=== PATIENT | female | born 2000 | race Hispanic/Latino ===

== ENCOUNTER 2019-03-25 08:11 | Inpatient (IN) | payer BC, OTHER ==
--- NOTE | 2019-03-25 08:52 | History and Physical Report ---
History of Present Illness Date of examination: 03/25/19 Date of admission: 03/25/19 08:11 History of present illness: EDC Confirmation: 03/14/2019 Gestational Age: 15 4/7 weeks Past History : 1 Term Births: 0 Premature Births: 0 Living Children: 0 Para: 0 Mult. Births: 0 Prev : 0 Prev. attempt? none Aborta: 0 Elect. Ab: 0 Spont. 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 of genital herpes: no Partner hx. of genital herpes: no Rash, Viral, or Febrile illness since last LMP? yes Varicella/Chicken Pox Status: Immunized TB Risk: no Genetic History Congenital Heart Defect: Mom: no Dad: no Kylee Disease: Mom: no Dad: no Thalassemia Mom: no Dad: no Neural Tube Defect Mom: no Dad: no Down's Syndrome Mom: no Dad: no Cole-Sachs Mom: no Dad: no Sickle Cell Disease/Trait Mom: no Dad: no Hemophilia Mom: no Dad: no Muscular Dystrophy Mom: no Dad: no Cystic Fibrosis Mom: no Dad: no [place] Chorea Mom: no Dad: no Mental Retardation Mom: no Dad: no Fragile X Mom: no Dad: no Other Genetic/Chromosomal Disorder Mom: no Dad: no Child w/other defect Mom: no Dad: no Enviromental Exposures Xray Exposure: no Medication, drug, or alcohol use since LMP: no Chemical/Other Exposure: no Exposure to Cat Liter: no Hx of Parvovirus (Fifth Disease): no Occupational Exposure to Children: none Active Medications (reviewed today): None Current Allergies (reviewed today): No known allergies Past History - Obstetrical History Expected Date of Delivery: 03/14/19 Actual Gestation: 41 Week(s) 4 Day(s) : 1 Para: 0 Hx # Term Pregnancies: 0 Number of Pregnancies: 0 Spontaneous Abortions: 0 Induced : 0 Number of Living Children: 0 Medications and Allergies Allergies Allergy/AdvReac Type Severity Reaction Status Date / Time No Known Allergies Allergy Verified 01/28/19 17:29 Results Result Diagrams: 03/25/19 09:30 All other labs normal. GBS negative HBsAg Screen Negative Negative *1 RPR Non Reactive Non Reactive *2 Rubella Antibodies, IgG 1.31 index Immune >0.99 *3 Non-immune <0.90 Equivocal 0.90 - 0.99 Immune >0.99 ABO Grouping O *4 Rh Factor Positive *5 Please note: Prior records for this patient's ABO / Rh type are not available for additional verification. Antibody Screen Negative Negative *6 WBC 9.9 x10E3/uL 3.4-10.8 *7 RBC 4.05 x10E6/uL 3.77-5.28 *8 Hemoglobin 12.6 g/dL 11.1-15.9 *9 Hematocrit 37.3 % 34.0-46.6 *10 MCV 92 fL 79-97 *11 MCH 31.1 pg 26.6-33.0 *12 MCHC 33.8 g/dL 31.5-35.7 *13 RDW 13.5 % 12.3-15.4 *14 Platelets 255 x10E3/uL 150-379 *15 Neutrophils 77 % Not Estab. *16 Lymphs 17 % Not Estab. *17 Monocytes 5 % Not Estab. *18 Eos 1 % Not Estab. *19 Basos 0 % Not Estab. *20 ! Immature Cells <No Reported Value> *21 Neutrophils (Absolute) [H] 7.6 x10E3/uL 1.4-7.0 *22 Lymphs (Absolute) 1.7 x10E3/uL 0.7-3.1 *23 Monocytes(Absolute) 0.5 x10E3/uL 0.1-0.9 *24 Eos (Absolute) 0.1 x10E3/uL 0.0-0.4 *25 Baso (Absolute) 0.0 x10E3/uL 0.0-0.2 *26 ! Immature Granulocytes 0 % Not Estab. *27 ! Immature Grans (Abs) 0.0 x10E3/uL 0.0-0.1 *28 ! NRBC <No Reported Value> *29 Hematology Comments: <No Reported Value> *30 Tests: (2) AFP Tetra ([id number]) ! Results Report *31 ! Test Results: *Screen Negative* *32 Tests: (3) Cystic Fibrosis Profile (315275) ! CF, Screen Comment: *55 RESULTS: Negative for 32 mutations analyzed Tests: (4) HB Solu + Rflx Fra (672935) Hemoglobin (Hgb) Solubility Negative Negative *57 Tests: (5) Panel 713584 ([id number]) HIV Screen 4th Generation wRfx Non Reactive Non Reactive *58 Tests: (6) HCV Ab w/Rflx to Verification ([id number]) ! HCV Ab <0.1 s/co ratio 0.0-0.9 *59 Tests: (7) Comment: ([id number]) ! Comment: SPRCS *60 Non reactive HCV antibody screen is consistent with no HCV infection, unless recent infection is suspected or other evidence exists to indicate HCV infection. Tests: (8) Urine Culture, Routine ([id number]) Urine Culture, Routine Final report *61 Tests: (9) Result ([id number]) ! Result 1 "Result Below..." *62 RESULT: Lactobacillus species 25,000-50,000 colony forming units per mL Susceptibility not normally performed on this organism. Assessment and Plan 18yo @ 41 weeks for IOL GBS negative Orders in EMR
[2019-03-25] MEDS ORDERED: PITOCin/NS 20 UNIT/1000ML DRIP 20 UNITS/1,000 ML BAG IV SCH (09:30)
[2019-03-25] MEDS ORDERED: ZOFRAN IV PRN (10:00)
[2019-03-25] MEDS ORDERED: XYLOCAINE 2% INFILTRATI NR (10:00)
[2019-03-25] MEDS ORDERED: BRETHINE SUB-Q PRN (10:00)
[2019-03-25 10:06] LABS: Hematocrit 37.2 % (30.3-42.9); Hemoglobin 13.1 gm/dl (10.1-14.3); Mean Corpuscular HGB Conc 35 % (30-34); Mean Corpuscular Volume 94 fl (79-97); Platelet Count 177 K/mm3 (140-440); Red Blood Count 3.95 M/mm3 (3.65-5.03); Red Cell Distribution Width 13.3 % (13.2-15.2)
[2019-03-25] MEDS: LACTATED RINGERS 1,000 ML IV SCH ×3 (10:18→21:42)
[2019-03-25] MEDS ORDERED: CERVIDIL VG ONE ×2 (10:30→20:00)
--- NOTE | 2019-03-25 16:57 | Progress Note ---
Assessment and Plan Cervidil removed. NST reactive. OOB for PM care Diet ordered. Pt may ambulate in james and go to [facility] Cervidil @ 1999 All questions addressed Pt agrees with POC Subjective - Subjective Date of service: 03/25/19 ( cervidil removed) Principal diagnosis: IOL @ 41 weeks Interval history: EDC Confirmation: 03/14/2019 Gestational Age: 15 4/7 weeks Past History : 1 Term Births: 0 Premature Births: 0 Living Children: 0 Para: 0 Mult. Births: 0 Prev : 0 Prev. attempt? none Aborta: 0 Elect. Ab: 0 Spont. 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 of genital herpes: no Partner hx. of genital herpes: no Rash, Viral, or Febrile illness since last LMP? yes Varicella/Chicken Pox Status: Immunized TB Risk: no Genetic History Congenital Heart Defect: Mom: no Dad: no Kylee Disease: Mom: no Dad: no Thalassemia Mom: no Dad: no Neural Tube Defect Mom: no Dad: no Down's Syndrome Mom: no Dad: no Cole-Sachs Mom: no Dad: no Sickle Cell Disease/Trait Mom: no Dad: no Hemophilia Mom: no Dad: no Muscular Dystrophy Mom: no Dad: no Cystic Fibrosis Mom: no Dad: no [place] Chorea Mom: no Dad: no Mental Retardation Mom: no Dad: no Fragile X Mom: no Dad: no Other Genetic/Chromosomal Disorder Mom: no Dad: no Child w/other defect Mom: no Dad: no Enviromental Exposures Xray Exposure: no Medication, drug, or alcohol use since LMP: no Chemical/Other Exposure: no Exposure to Cat Liter: no Hx of Parvovirus (Fifth Disease): no Occupational Exposure to Children: none Active Medications (reviewed today): None Current Allergies (reviewed today): No known allergies Patient reports: movement normal Objective - Vital Signs Vital Signs: Vital Signs - 12hr 03/25/19 03/25/19 03/25/19 12:52 16:03 16:29 Temperature 98.4 F Pulse Rate 66 80 Respiratory 18 Rate Blood Pressure 119/74 122/61 - Exam Breasts: deferred Cardiovascular: Regular rate Lungs: Normal air movement Abdomen: Present: normal appearance, soft. Absent: distention, tenderness Uterus: Present: normal FHR: auscultation normal, category 1 Uterine Contraction Monitor Mode: External Cervical Dilatation: 0 (cervidil removed) Cervical Effacement Percentage: 0 station: -3 Uterine Contraction Pattern: Irregular Uterine Tone Measurement Phase: Resting Uterine Contraction Intensity: Mild Extremities: normal Deep Tendon Reflex Grade: Normal +2 - Labs Labs: Abnormal Labs 03/25/19 09:30 WBC 11.5 H MCH 33 H MCHC 35 H Laboratory Results - last 24 hr 03/25/19 03/25/19 03/25/19 09:30 09:30 09:30 WBC 11.5 H RBC 3.95 Hgb 13.1 Hct 37.2 MCV 94 MCH 33 H MCHC 35 H RDW 13.3 Plt Count 177 RPR Nonreactive Blood Type O POSITIVE Antibody Screen Negative
[2019-03-25] MEDS ORDERED: VISTARIL PO ONE (20:22)
--- NOTE | 2019-03-25 20:30 | Progress Note ---
Assessment and Plan Pt crying C/O some pain but mostly anxiety Vistaril 100mg po now Fluid bolus Re- eval in 1 hour. Subjective - Subjective Date of service: 03/25/19 (pt wanda too much to place Cervidil) Principal diagnosis: IOL @ 41 weeks Interval history: EDC Confirmation: 03/14/2019 Gestational Age: 15 4/7 weeks Past History : 1 Term Births: 0 Premature Births: 0 Living Children: 0 Para: 0 Mult. Births: 0 Prev : 0 Prev. attempt? none Aborta: 0 Elect. Ab: 0 Spont. 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 of genital herpes: no Partner hx. of genital herpes: no Rash, Viral, or Febrile illness since last LMP? yes Varicella/Chicken Pox Status: Immunized TB Risk: no Genetic History Congenital Heart Defect: Mom: no Dad: no Kylee Disease: Mom: no Dad: no Thalassemia Mom: no Dad: no Neural Tube Defect Mom: no Dad: no Down's Syndrome Mom: no Dad: no Cole-Sachs Mom: no Dad: no Sickle Cell Disease/Trait Mom: no Dad: no Hemophilia Mom: no Dad: no Muscular Dystrophy Mom: no Dad: no Cystic Fibrosis Mom: no Dad: no [place] Chorea Mom: no Dad: no Mental Retardation Mom: no Dad: no Fragile X Mom: no Dad: no Other Genetic/Chromosomal Disorder Mom: no Dad: no Child w/other defect Mom: no Dad: no Enviromental Exposures Xray Exposure: no Medication, drug, or alcohol use since LMP: no Chemical/Other Exposure: no Exposure to Cat Liter: no Hx of Parvovirus (Fifth Disease): no Occupational Exposure to Children: none Active Medications (reviewed today): None Current Allergies (reviewed today): No known allergies Patient reports: movement normal Objective - Vital Signs Vital Signs: Vital Signs - 12hr 03/25/19 03/25/19 03/25/19 12:52 16:03 16:29 Temperature 98.4 F Pulse Rate 66 80 Respiratory 18 Rate Blood Pressure 119/74 122/61 03/25/19 20:02 Temperature Pulse Rate 96 H Respiratory Rate Blood Pressure 121/75 - Exam Breasts: deferred Cardiovascular: Regular rate Lungs: Normal air movement Abdomen: Present: normal appearance, soft. Absent: distention, tenderness Uterus: Present: normal FHR: auscultation normal, category 1 Uterine Contraction Monitor Mode: External Cervical Dilatation: 1 Cervical Effacement Percentage: 50 station: -2 Uterine Contraction Frequency (min): q2 Uterine Contraction Duration: 50 Uterine Contraction Pattern: Regular Uterine Tone Measurement Phase: Resting Uterine Contraction Intensity: Moderate Extremities: normal Deep Tendon Reflex Grade: Normal +2 - Labs Labs: Abnormal Labs 03/25/19 09:30 WBC 11.5 H MCH 33 H MCHC 35 H Laboratory Results - last 24 hr 03/25/19 03/25/19 03/25/19 09:30 09:30 09:30 WBC 11.5 H RBC 3.95 Hgb 13.1 Hct 37.2 MCV 94 MCH 33 H MCHC 35 H RDW 13.3 Plt Count 177 RPR Nonreactive Blood Type O POSITIVE Antibody Screen Negative
--- NOTE | 2019-03-26 07:57 | Progress Note ---
Assessment and Plan day 2 of IOL. Second dose of cervidil removed, no change from office Friday. patient crying and frustrated. Will allow breakfast, AM care and ambulation. Orders to start pitocin in EMR. Discussed nature of serial IOL, it could take 3- 5 days before patient is ready to deliver. Discussed possibility of replacing cervidil tonight if no cervical change after trial of pitocin. Plan discussed with patient and family, all questions addressed. - Patient Problems (1) 41 weeks gestation of Current Visit: Yes Status: Acute Subjective - Subjective Date of service: 03/26/19 Principal diagnosis: IOL @ 41+5 weeks Patient reports: movement normal, contractions, no loss of fluid, no vaginal bleeding Objective - Vital Signs Vital Signs: Vital Signs - 12hr 03/25/19 03/25/19 03/26/19 20:02 21:30 02:04 Temperature 97.0 F L Pulse Rate 96 H 71 Respiratory Rate Blood Pressure 121/75 101/52 Blood Pressure [Right] 03/26/19 03/26/19 03/26/19 03:00 07:36 07:37 Temperature 97.9 F 97.8 F Pulse Rate 50 L 50 L Respiratory 16 Rate Blood Pressure 121/70 Blood Pressure 121/70 [Right] - Exam Breasts: normal Cardiovascular: Regular rate Lungs: Clear to auscultation, Normal air movement Abdomen: Present: normal appearance, soft Vulva: both: normal Uterus: Present: normal FHR: auscultation normal, category 1 Uterine Contraction Monitor Mode: External Cervical Dilatation: 1 (posterior) Cervical Effacement Percentage: 50 station: -3 Uterine Contraction Frequency (min): 2-3 Uterine Contraction Duration: 60 Uterine Contraction Pattern: Regular Uterine Tone Measurement Phase: Contraction Uterine Contraction Intensity: Mild Extremities: normal Deep Tendon Reflex Grade: Normal +2 - Labs Labs: Abnormal Labs 03/25/19 09:30 WBC 11.5 H MCH 33 H MCHC 35 H Laboratory Results - last 24 hr 03/25/19 03/25/19 03/25/19 09:30 09:30 09:30 WBC 11.5 H RBC 3.95 Hgb 13.1 Hct 37.2 MCV 94 MCH 33 H MCHC 35 H RDW 13.3 Plt Count 177 RPR Nonreactive Blood Type O POSITIVE Antibody Screen Negative
[2019-03-26] MEDS ORDERED: PITOCin/NS 30 UNIT/500ML 30 UNITS/500 ML BAG IV SCH (08:00)
[2019-03-26] MEDS: LACTATED RINGERS 1,000 ML IV SCH ×2 (11:12→18:35)
[2019-03-26] MEDS: SUBLIMAZE IV PRN ×2 (13:22→16:10)
[2019-03-26] MEDS ORDERED: STADOL IV PRN (16:59)
--- NOTE | 2019-03-26 17:23 | Event Note ---
Date: 03/26/19 Agree with residential program manager exam and noted. Will con't pitocin for now and if no cervical change plan for placement of third cervidil this pm.
[2019-03-26] MEDS ORDERED: NARCAN 2 MG/2 ML IV PRN (19:32)
--- NOTE | 2019-03-26 19:35 | Anesthesia Consultation ---
Anesthesia Consult and Med Hx Date of service: 03/26/19 - Airway Anesthetic Teeth Evaluation: Good ROM Head & Neck: Adequate Mental/Hyoid Distance: Adequate Mallampati Class: Class II Intubation Access Assessment: Probably Good - Pulmonary Exam CTA: Yes - Cardiac Exam Cardiac Exam: RRR - Pre-Operative Health Status ASA Pre-Surgery Classification: ASA2 Proposed Anesthetic Plan: Epidural - Pulmonary Hx Smoking: No Hx Asthma: No Hx Respiratory Symptoms: No SOB: No COPD: No Home Oxygen Therapy: No Hx Pneumonia: No Hx Sleep Apnea: No - Cardiovascular System Hx Hypertension: No Hx Coronary Artery Disease: No Hx Heart Attack/AMI: No Hx Angina: No Hx Percutaneous Transluminal Coronary Angioplasty (PTCA): No Hx Cardia Arrhythmia: No Hx Pacemaker: No Hx Internal Defibrillator: No Hx Valvular Heart Disease: No Hx Heart Murmur: No Hx Peripheral Vascular Disease: No - Central Nervous System Hx Neuromuscular Disorder: No Hx Seizures: No CVA: No Hx Back Pain: No Hx Psychiatric Problems: No - Gastrointestinal Hx Ulcer: No Hx Gastroesophageal Reflux Disease: Yes - Endocrine Hx Renal Disease: No Hx End Stage Renal Disease: No Hx Cirrhosis: No Hx Liver Disease: No Hx Insulin Dependent Diabetes: No Hx Non-Insulin Dependent Diabetes: No Hx Thyroid Disease: No Hx Hypothyroidism: No Hx Hyperthyroidism: No - Hematic Hx Anemia: No Hx Sickle Cell Disease: No - Other Systems Hx Alcohol Use: No Hx Substance Use: No Hx Cancer: No Hx Obesity: No
[2019-03-26] MEDS ORDERED: fentaNYL-BUPIV 2 MCG/ML-0.125% 200 MCG/100 ML BAG EPIDURAL SCH (20:00)
--- NOTE | 2019-03-26 21:44 | Progress Note ---
Assessment and Plan - Patient Problems (1) 41 weeks gestation of Current Visit: Yes Status: Acute Plan to address problem: s/p IOL now with rapid progression of labor and active labor cont pitocin anticpate Subjective - Subjective Date of service: 03/26/19 Principal diagnosis: IOL @ 41+5 weeks Interval history: IUP at 41+ weeks for IOL. Pt comfortable with epidural in place. I advised family that pt should rest at this time as she should be ready to push in the next 1-2 hours or less. Pt states she is tired and wants to rest at this time. Patient reports: movement normal, contractions, no loss of fluid, no vaginal bleeding Objective - Vital Signs Vital Signs: Vital Signs - 12hr 03/26/19 03/26/19 03/26/19 11:54 11:56 12:01 Temperature Pulse Rate 81 78 82 Respiratory Rate Blood Pressure 119/76 Blood Pressure [Right] O2 Sat by Pulse 97 97 Oximetry 03/26/19 03/26/19 03/26/19 12:02 12:06 12:11 Temperature 97.5 F L Pulse Rate 86 85 88 Respiratory 18 Rate Blood Pressure 118/75 Blood Pressure 118/75 [Right] O2 Sat by Pulse 97 97 97 Oximetry 03/26/19 03/26/19 03/26/19 12:16 12:24 12:26 Temperature Pulse Rate 73 74 75 Respiratory Rate Blood Pressure 128/75 Blood Pressure [Right] O2 Sat by Pulse 97 98 Oximetry 03/26/19 03/26/19 03/26/19 12:31 12:36 12:41 Temperature Pulse Rate 68 68 77 Respiratory Rate Blood Pressure Blood Pressure [Right] O2 Sat by Pulse 97 97 97 Oximetry 03/26/19 03/26/19 03/26/19 12:45 12:51 12:56 Temperature Pulse Rate 69 75 78 Respiratory Rate Blood Pressure Blood Pressure [Right] O2 Sat by Pulse 97 97 97 Oximetry 03/26/19 03/26/19 03/26/19 13:00 13:06 13:26 Temperature Pulse Rate 84 54 L 65 Respiratory Rate Blood Pressure 111/62 Blood Pressure [Right] O2 Sat by Pulse 97 97 Oximetry 03/26/19 03/26/19 03/26/19 13:27 13:28 13:33 Temperature Pulse Rate 64 61 66 Respiratory Rate Blood Pressure Blood Pressure [Right] O2 Sat by Pulse 94 94 94 Oximetry 03/26/19 03/26/19 03/26/19 13:38 13:43 13:48 Temperature Pulse Rate 67 57 L 71 Respiratory Rate Blood Pressure Blood Pressure [Right] O2 Sat by Pulse 94 94 93 Oximetry 03/26/19 03/26/19 03/26/19 13:52 13:55 13:58 Temperature Pulse Rate 56 L 54 L 69 Respiratory Rate Blood Pressure 99/56 Blood Pressure [Right] O2 Sat by Pulse 94 94 Oximetry 03/26/19 03/26/19 03/26/19 14:03 14:08 14:13 Temperature Pulse Rate 56 L 64 57 L Respiratory Rate Blood Pressure Blood Pressure [Right] O2 Sat by Pulse 95 94 94 Oximetry 03/26/19 03/26/19 03/26/19 14:18 14:23 14:25 Temperature Pulse Rate 71 59 L 57 L Respiratory Rate Blood Pressure 111/55 Blood Pressure [Right] O2 Sat by Pulse 95 96 Oximetry 03/26/19 03/26/19 03/26/19 14:28 15:19 15:26 Temperature Pulse Rate 49 L 64 63 Respiratory Rate Blood Pressure 126/77 124/69 Blood Pressure [Right] O2 Sat by Pulse 96 Oximetry 03/26/19 03/26/19 03/26/19 15:56 16:09 16:10 Temperature 97.3 F L Pulse Rate 67 62 53 L Respiratory 16 Rate Blood Pressure 133/81 134/77 Blood Pressure 134/77 [Right] O2 Sat by Pulse 95 98 Oximetry 03/26/19 03/26/19 03/26/19 16:15 16:20 16:25 Temperature Pulse Rate 62 57 L 63 Respiratory Rate Blood Pressure 133/86 Blood Pressure [Right] O2 Sat by Pulse 95 95 95 Oximetry 03/26/19 03/26/19 03/26/19 16:30 16:35 16:40 Temperature Pulse Rate 63 57 L 87 Respiratory Rate Blood Pressure Blood Pressure [Right] O2 Sat by Pulse 95 95 96 Oximetry 03/26/19 03/26/19 03/26/19 16:45 16:50 16:55 Temperature Pulse Rate 62 84 70 Respiratory Rate Blood Pressure Blood Pressure [Right] O2 Sat by Pulse 97 97 97 Oximetry 03/26/19 03/26/19 03/26/19 16:59 17:05 17:10 Temperature Pulse Rate 88 91 H 96 H Respiratory Rate Blood Pressure Blood Pressure [Right] O2 Sat by Pulse 97 100 99 Oximetry 03/26/19 03/26/19 03/26/19 17:15 17:20 17:22 Temperature Pulse Rate 65 63 57 L Respiratory Rate Blood Pressure Blood Pressure [Right] O2 Sat by Pulse 95 95 91 Oximetry 03/26/19 03/26/19 03/26/19 17:25 17:30 17:35 Temperature Pulse Rate 55 L 62 62 Respiratory Rate Blood Pressure 128/58 Blood Pressure [Right] O2 Sat by Pulse 93 95 93 Oximetry 03/26/19 03/26/19 03/26/19 17:36 17:40 17:45 Temperature Pulse Rate 65 66 65 Respiratory Rate Blood Pressure Blood Pressure [Right] O2 Sat by Pulse 90 95 97 Oximetry 03/26/19 03/26/19 03/26/19 17:49 17:50 17:54 Temperature Pulse Rate 64 71 85 Respiratory Rate Blood Pressure 132/93 Blood Pressure [Right] O2 Sat by Pulse 90 95 Oximetry 03/26/19 03/26/19 03/26/19 17:55 18:00 18:02 Temperature Pulse Rate 82 95 H 66 Respiratory Rate Blood Pressure Blood Pressure [Right] O2 Sat by Pulse 96 98 83 L Oximetry 03/26/19 03/26/19 03/26/19 18:05 18:10 18:11 Temperature Pulse Rate 104 H 65 66 Respiratory Rate Blood Pressure Blood Pressure [Right] O2 Sat by Pulse 99 97 86 Oximetry 03/26/19 03/26/19 03/26/19 18:13 18:15 18:20 Temperature Pulse Rate 96 H 70 111 H Respiratory Rate Blood Pressure 141/94 Blood Pressure [Right] O2 Sat by Pulse 96 99 Oximetry 03/26/19 03/26/19 03/26/19 18:25 18:30 18:35 Temperature Pulse Rate 115 H 69 69 Respiratory Rate Blood Pressure 132/89 Blood Pressure [Right] O2 Sat by Pulse 96 97 96 Oximetry 03/26/19 03/26/19 03/26/19 18:40 18:45 18:50 Temperature Pulse Rate 59 L 63 68 Respiratory Rate Blood Pressure Blood Pressure [Right] O2 Sat by Pulse 97 94 98 Oximetry 03/26/19 03/26/19 03/26/19 18:55 19:00 19:05 Temperature Pulse Rate 77 93 H 87 Respiratory Rate Blood Pressure Blood Pressure [Right] O2 Sat by Pulse 98 98 97 Oximetry 03/26/19 03/26/19 03/26/19 19:10 19:15 19:17 Temperature Pulse Rate 59 L 57 L 59 L Respiratory Rate Blood Pressure 126/64 125/72 Blood Pressure [Right] O2 Sat by Pulse 94 95 Oximetry 03/26/19 03/26/19 03/26/19 19:19 19:20 19:21 Temperature Pulse Rate 59 L 60 58 L Respiratory Rate Blood Pressure 130/72 119/70 Blood Pressure [Right] O2 Sat by Pulse 95 Oximetry 03/26/19 03/26/19 03/26/19 19:23 19:25 19:27 Temperature Pulse Rate 60 66 51 L Respiratory Rate Blood Pressure 129/68 120/59 125/59 Blood Pressure [Right] O2 Sat by Pulse 88 96 Oximetry 03/26/19 03/26/19 03/26/19 19:30 19:31 19:33 Temperature Pulse Rate 59 L 54 L 58 L Respiratory Rate Blood Pressure 120/56 121/58 Blood Pressure [Right] O2 Sat by Pulse 96 Oximetry 03/26/19 03/26/19 03/26/19 19:35 19:40 19:41 Temperature Pulse Rate 69 68 56 L Respiratory Rate Blood Pressure 125/62 115/63 Blood Pressure [Right] O2 Sat by Pulse 97 97 Oximetry 03/26/19 03/26/19 03/26/19 19:43 19:45 19:47 Temperature Pulse Rate 53 L 50 L 63 Respiratory Rate Blood Pressure 112/62 113/58 114/67 Blood Pressure [Right] O2 Sat by Pulse 96 Oximetry 03/26/19 03/26/19 03/26/19 19:49 19:50 19:51 Temperature Pulse Rate 68 59 L 62 Respiratory Rate Blood Pressure 121/59 103/55 Blood Pressure [Right] O2 Sat by Pulse 96 Oximetry 03/26/19 03/26/19 03/26/19 19:55 19:57 19:59 Temperature Pulse Rate 65 55 L 66 Respiratory Rate Blood Pressure 122/73 118/58 124/63 Blood Pressure [Right] O2 Sat by Pulse 97 Oximetry 03/26/19 03/26/19 03/26/19 20:00 20:01 20:03 Temperature Pulse Rate 57 L 55 L 57 L Respiratory Rate Blood Pressure 120/58 120/56 Blood Pressure [Right] O2 Sat by Pulse 97 Oximetry 03/26/19 03/26/19 03/26/19 20:05 20:08 20:09 Temperature Pulse Rate 62 64 73 Respiratory Rate Blood Pressure 127/60 121/72 Blood Pressure [Right] O2 Sat by Pulse 97 Oximetry 03/26/19 03/26/19 03/26/19 20:10 20:11 20:15 Temperature Pulse Rate 70 68 64 Respiratory Rate Blood Pressure 124/60 Blood Pressure [Right] O2 Sat by Pulse 97 97 Oximetry 03/26/19 03/26/19 03/26/19 20:18 20:20 20:21 Temperature Pulse Rate 63 58 L 53 L Respiratory Rate Blood Pressure 95/52 97/52 Blood Pressure [Right] O2 Sat by Pulse 97 Oximetry 03/26/19 03/26/19 03/26/19 20:23 20:25 20:28 Temperature Pulse Rate 68 60 57 L Respiratory Rate Blood Pressure 103/56 95/54 127/64 Blood Pressure [Right] O2 Sat by Pulse 96 Oximetry 03/26/19 03/26/19 03/26/19 20:30 20:35 20:40 Temperature Pulse Rate 64 60 64 Respiratory Rate Blood Pressure Blood Pressure [Right] O2 Sat by Pulse 97 97 96 Oximetry 03/26/19 03/26/19 03/26/19 20:45 20:50 20:55 Temperature Pulse Rate 61 82 69 Respiratory Rate Blood Pressure Blood Pressure [Right] O2 Sat by Pulse 96 96 96 Oximetry 03/26/19 03/26/19 03/26/19 21:00 21:05 21:10 Temperature Pulse Rate 65 86 64 Respiratory Rate Blood Pressure Blood Pressure [Right] O2 Sat by Pulse 96 95 96 Oximetry 03/26/19 03/26/19 03/26/19 21:14 21:15 21:17 Temperature Pulse Rate 55 L 57 L 77 Respiratory Rate Blood Pressure 120/68 116/61 128/63 Blood Pressure [Right] O2 Sat by Pulse 96 Oximetry 03/26/19 03/26/19 21:19 21:20 Temperature Pulse Rate 56 L 60 Respiratory Rate Blood Pressure 118/65 Blood Pressure [Right] O2 Sat by Pulse 95 Oximetry - Exam Cardiovascular: Normal S1, Normal S2 Abdomen: Present: normal appearance, soft. Absent: distention, tenderness, guarding FHR: category 1 Cervical Dilatation: 8 Cervical Effacement Percentage: 100 station: 0 Uterine Contraction Pattern: Regular Uterine Tone Measurement Phase: Resting Uterine Contraction Intensity: Moderate Extremities: normal Deep Tendon Reflex Grade: Normal +2 - Labs Labs: Abnormal Labs 03/25/19 09:30 WBC 11.5 H MCH 33 H MCHC 35 H
[2019-03-26] MEDS ORDERED: MINERAL OIL ONE (22:29)
[2019-03-26] MEDS ORDERED: METHERGINE IM ONE (22:41)
--- NOTE | 2019-03-26 23:14 | Procedure Note ---
OB Delivery Note - Delivery Date of Delivery: 03/26/19 Surgeon: RONNIE BARTHOLOMEW Estimated blood loss: 500cc - Vaginal Delivery presentation: vertex Intrapartum events: hemorrhage (uterine atony relieved with starting post pitocin and uterine massage), other(please specify) (post ) Delivery induction: misoprostol Delivery augmentation: rupture of membranes, pitocin Delivery monitor: external FHT, external uterine Delivery placenta: spontaneous Delivery cord: 3 umbilical vessels Episiotomy: midline Delivery laceration: 3rd degree (paritial and second degree vaginal post wall) Delivery repair: vicryl (3-0) Anesthesia: epidural Delivery comments: Delivery as above. With about 20 minutes of pushing pt delivered head and ant sh oulder without difficulty. Rest of delivered w/o difficulty. Infant placed on maternal abdomen. Cord clamped after pulsation stopped. Cord blood was collected. Placenta delivered spontaneously intact. Uterine atony noted and relieved as above. MLE was cut and partial 3rd degree extension was noted and repaired in usual fashion. Count of sponges was off by one and xray of pelvis was done and review at bedside appears to show nothing in pelvis. Will await final report. Mother and stable in LDR. Temp of was noted at time of delivery. - A at 1 minute: 8 at 5 minutes: 9 Infant Gender: Male (8lbs 6oz)
[2019-03-26] MEDS ORDERED: TUCKS PAD TP PRN (23:35)
[2019-03-26] MEDS ORDERED: PHENERGAN PR PRN (23:35)
[2019-03-26] MEDS ORDERED: ZOFRAN IV PRN (23:35)
[2019-03-26] MEDS ORDERED: PHENERGAN PO PRN (23:35)
[2019-03-26] MEDS ORDERED: DULCOLAX PR PRN (23:35)
[2019-03-26] MEDS ORDERED: LANSINOH TP PRN (23:35)
[2019-03-26] MEDS ORDERED: BENADRYL PO PRN (23:35)
[2019-03-26] MEDS ORDERED: MILK OF MAGNESIA PO PRN (23:35)
[2019-03-26] MEDS ORDERED: TYLENOL PO PRN (23:35)
[2019-03-26] MEDS ORDERED: SODIUM CHLORIDE FLUSH SYRINGE 10 ML IV NR (23:45)
--- NOTE | 2019-03-27 00:17 | XRay Report ---
[facility] SPINE PELVIS OF THE 2018 INDICATION / CLINICAL INFORMATION: post procedure count not correct. COMPARISON: None available. FINDINGS: No radiopaque metallic foreign bodies are identified. No skeletal abnormality. Signer Name: Jah Boggs MD Signed: 03/27/2019 12:12 AM Workstation Name: [id number]
[2019-03-27] MEDS: IBUPROFEN PO SCH ×3 (05:43→22:19)
[2019-03-27 11:07] LABS: Hemoglobin 10.1 gm/dl (10.1-14.3)
[2019-03-27] MEDS: COLACE PO SCH ×2 (13:34→22:18)
--- NOTE | 2019-03-27 15:47 | Progress Note ---
Assessment and Plan PPD1 Pt resting comfortably in bed, patient reports feeling well, she denies any complaints or concerns at this time. Fundus is firm, ML/ U/1. Vaginal bleeding is small, patient denies any heavy bleeding or clots. She reports pain is well managed with medications. Denies any needs at this time. She reports breast feeding is going well. Reviewed post delivery H&H, pt denies any dizziness with ambulation or position changes. VSSAF. Continue pathway. Subjective - Subjective Date of service: 03/27/19 Principal diagnosis: PPD1 s/p Patient reports: appetite normal, voiding normally, pain well controlled, ambulating normally [place]: doing well Objective - Vital Signs Latest vital signs: Vital Signs Temp Pulse Resp BP BP Pulse Ox 03/27/19 08:50 98 F 68 20 104/48 03/27/19 01:52 97.8 F 76 20 119/69 95 03/27/19 00:00 66 97 03/26/19 23:59 84 119/60 03/26/19 23:55 90 97 03/26/19 23:50 88 96 03/26/19 23:45 81 125/64 95 03/26/19 23:40 94 H 96 03/26/19 23:35 92 H 96 03/26/19 23:30 75 124/70 95 03/26/19 23:25 94 H 99 03/26/19 23:20 69 96 03/26/19 23:15 83 117/67 95 03/26/19 23:10 71 95 03/26/19 23:05 75 95 03/26/19 23:00 81 96 03/26/19 22:59 63 116/58 03/26/19 22:57 128/60 03/26/19 22:55 77 121/58 96 03/26/19 22:53 81 121/56 03/26/19 22:51 72 121/58 03/26/19 22:50 82 96 03/26/19 22:49 81 112/61 03/26/19 22:47 85 147/64 03/26/19 22:45 85 157/58 97 03/26/19 22:20 88 95 03/26/19 22:15 63 119/59 95 03/26/19 22:10 76 95 03/26/19 22:09 78 169/71 03/26/19 22:07 73 113/58 03/26/19 22:05 65 111/57 93 03/26/19 22:03 61 112/58 03/26/19 22:01 82 116/58 03/26/19 22:00 64 93 03/26/19 21:59 60 112/56 03/26/19 21:57 54 L 112/58 03/26/19 21:55 62 113/58 93 03/26/19 21:53 72 114/60 03/26/19 21:52 67 91 03/26/19 21:51 60 109/55 03/26/19 21:50 60 92 03/26/19 21:49 66 115/57 03/26/19 21:47 62 112/55 03/26/19 21:45 64 110/58 94 03/26/19 21:43 57 L 106/57 03/26/19 21:41 62 114/57 03/26/19 21:40 64 94 03/26/19 21:39 50 L 115/60 03/26/19 21:37 56 L 111/58 03/26/19 21:35 60 109/63 94 03/26/19 21:33 70 110/61 03/26/19 21:31 59 L 106/59 03/26/19 21:30 59 L 94 03/26/19 21:29 57 L 112/58 03/26/19 21:27 68 111/60 03/26/19 21:25 62 109/59 94 03/26/19 21:23 61 108/55 03/26/19 21:21 55 L 108/55 03/26/19 21:20 60 95 03/26/19 21:19 56 L 118/65 03/26/19 21:17 77 128/63 03/26/19 21:15 57 L 116/61 96 03/26/19 21:14 55 L 120/68 03/26/19 21:10 64 96 03/26/19 21:05 86 95 03/26/19 21:00 65 96 03/26/19 20:55 69 96 03/26/19 20:50 82 96 03/26/19 20:45 61 96 03/26/19 20:40 64 96 03/26/19 20:35 60 97 03/26/19 20:30 64 97 03/26/19 20:28 57 L 127/64 03/26/19 20:25 60 95/54 96 03/26/19 20:23 68 103/56 03/26/19 20:21 53 L 97/52 03/26/19 20:20 58 L 97 03/26/19 20:18 63 95/52 03/26/19 20:15 64 97 03/26/19 20:11 68 124/60 03/26/19 20:10 70 97 03/26/19 20:09 73 121/72 03/26/19 20:08 64 127/60 03/26/19 20:05 62 97 03/26/19 20:03 57 L 120/56 03/26/19 20:01 55 L 120/58 03/26/19 20:00 57 L 97 03/26/19 19:59 66 124/63 03/26/19 19:57 55 L 118/58 03/26/19 19:55 65 122/73 97 03/26/19 19:51 62 103/55 03/26/19 19:50 59 L 96 03/26/19 19:49 68 121/59 03/26/19 19:47 63 114/67 03/26/19 19:45 50 L 113/58 96 03/26/19 19:43 53 L 112/62 03/26/19 19:41 56 L 115/63 03/26/19 19:40 68 97 03/26/19 19:35 69 125/62 97 03/26/19 19:33 58 L 121/58 03/26/19 19:31 54 L 120/56 03/26/19 19:30 98.7 F 59 L 18 96 03/26/19 19:27 51 L 125/59 03/26/19 19:25 66 120/59 96 03/26/19 19:23 60 129/68 88 03/26/19 19:21 58 L 119/70 03/26/19 19:20 60 95 03/26/19 19:19 59 L 130/72 03/26/19 19:17 59 L 125/72 03/26/19 19:15 57 L 126/64 95 03/26/19 19:10 59 L 94 03/26/19 19:05 87 97 03/26/19 19:00 93 H 98 03/26/19 18:55 77 98 03/26/19 18:50 68 98 03/26/19 18:45 63 94 03/26/19 18:40 59 L 97 03/26/19 18:35 69 96 03/26/19 18:30 69 97 03/26/19 18:25 115 H 132/89 96 03/26/19 18:20 111 H 99 03/26/19 18:15 70 96 03/26/19 18:13 96 H 141/94 03/26/19 18:11 66 86 03/26/19 18:10 65 97 03/26/19 18:05 104 H 99 03/26/19 18:02 66 83 L 03/26/19 18:00 95 H 98 03/26/19 17:55 82 96 03/26/19 17:54 85 132/93 03/26/19 17:50 71 95 03/26/19 17:49 64 90 03/26/19 17:45 65 97 03/26/19 17:40 66 95 03/26/19 17:36 65 90 03/26/19 17:35 62 93 03/26/19 17:30 62 95 03/26/19 17:25 55 L 128/58 93 03/26/19 17:22 57 L 91 03/26/19 17:20 63 95 03/26/19 17:15 65 95 03/26/19 17:10 96 H 99 03/26/19 17:05 91 H 100 03/26/19 16:59 88 97 03/26/19 16:55 70 97 03/26/19 16:50 84 97 03/26/19 16:45 62 97 03/26/19 16:40 87 96 03/26/19 16:35 57 L 95 03/26/19 16:30 63 95 03/26/19 16:25 63 133/86 95 03/26/19 16:20 57 L 95 03/26/19 16:15 62 95 03/26/19 16:10 53 L 98 03/26/19 16:09 97.3 F L 62 16 134/77 134/77 95 03/26/19 15:56 67 133/81 Intake and Output 03/26/19 03/27/19 03/27/19 23:59 07:59 15:59 Intake Total 8.333 320 Output Total 1300 900 600 Balance -1291.667 -900 -280 Intake: IV 8.333 PITOCin/NS 30 UNIT/500ML 8.333 30 units In 500 ml @ 4 mls/hr IV TITR MARY Rx#: [id number] Oral 320 Output: Urine 1300 900 600 Indwelling Catheter 1300 Void 900 600 Other: Total, Intake Amount 320 Total, Output Amount 800 900 600 Estimated Blood Loss 500 - Exam Breasts: Present: normal Cardiovascular: Present: Regular rate, Normal S1, Normal S2 Lungs: Present: Clear to auscultation, Normal air movement Abdomen: Present: normal appearance, soft, normal bowel sounds Vulva: both: normal Uterus: Present: normal, firm, fundal height below umbilicus Extremities: Present: normal Deep Tendon Reflex Grade: Normal +2 - Labs Labs: Abnormal lab results 03/27/19 Range/Units 10:41 Hct 29.0 L D (30.3-42.9) %
[2019-03-28] MEDS ORDERED: DERMOPLAST TP PRN (07:52)
[2019-03-28] MEDS: IBUPROFEN PO SCH ×2 (12:19)
[2019-03-28] MEDS: COLACE PO SCH (12:19)
--- NOTE | 2019-03-28 12:35 | Discharge Summary ---
Providers - Providers Date of Admission: 03/25/19 08:11 Date of discharge: 03/28/19 (desires d/c home today) Attending physician: NICK ROSARIO Primary care physician: NICK ROSARIO Hospitalization Reason for admission: Induction of labor Condition: Good Pertinent studies: post delivery H&H 10.1/29.0 Procedures: Hospital course: uncomplicated and course Disposition: DC-01 TO HOME OR SELFCARE - Discharge Diagnoses (1) (spontaneous vaginal delivery) Status: Acute Core Measure Documentation - Palliative Care Palliative Care/ Comfort Measures: Not Applicable - Core Measures Any of the following diagnoses?: none Exam - Constitutional Vitals: Temp Pulse Resp BP Pulse Ox 98.3 F 70 16 105/62 100 03/28/19 08:25 03/28/19 08:25 03/28/19 08:25 03/28/19 08:25 03/28/19 08:25 General appearance: Present: no acute distress, well-nourished - EENT Eyes: Present: PERRL ENT: hearing intact, clear oral mucosa - Neck Neck: Present: supple, normal ROM - Respiratory Respiratory effort: normal Respiratory: bilateral: CTA - Cardiovascular Heart Sounds: Present: S1 & S2. Absent: rub, click - Extremities Extremities: pulses symmetrical, No edema Peripheral Pulses: within normal limits - Abdominal General gastrointestinal: Present: soft, non-tender, non-distended, normal bowel sounds Female genitourinary: Present: normal - Integumentary Integumentary: Present: clear, warm, dry - Musculoskeletal Musculoskeletal: gait normal, strength equal bilaterally - Psychiatric Psychiatric: appropriate mood/affect, intact judgment & insight - Neurologic Neurologic: CNII-XII intact, moves all extremities - Additional findings Additional findings: fundus firm, lochia scant, Plan Activity: no restrictions Diet: regular Wound: open to air, keep clean and dry Follow up with: NICK ROSARIO MD [Primary Care Provider] - 7 Days (Congratulations! Please call [phone] to schedule your son's circumcision in 1 week and your visit in 4 weeks. Bring EMLA cream to your son's appointment and await further teaching. Call for any questions or concerns. ) Forms: [facility] Discharge Summary Prescriptions: Lidocain2.5%/Prilocai2.5% [Emla] 1 gm TP ONCE #1 tube Ibuprofen [Motrin 800 MG tab] 800 mg PO Q6HR PRN #30 tablet PRN Reason: Pain, Moderate (4-6)
[2019-03-28 14:47] VITALS: BP 118/76
== END 2019-03-28 14:20 | disposition home or self-care (01) | DRG 768 ==
LOC: LD 08:11 → OB 03-27 01:17
PROVIDERS: ADMIT Obstetrics & Gynecology; ATTEND Obstetrics & Gynecology
PROC: 10E0XZZ Delivery of Products of Conception, External Approach (ICD-10-PCS; principal; 2019-03-26)
PROC: 0DQR0ZZ Repair Anal Sphincter, Open Approach (ICD-10-PCS; 2019-03-26)
PROC: 3E0P7VZ Introduction of Hormone into Female Reproductive, Via Natural or Artificial Opening (ICD-10-PCS; 2019-03-26)
DX: O48.0 Post-term pregnancy (principal); Z37.0 Single live birth; O70.20 Third degree perineal laceration during delivery, unspecified; O72.1 Other immediate postpartum hemorrhage; Z87.891 Personal history of nicotine dependence; Z3A.41 41 weeks gestation of pregnancy
CPT/HCPCS: 36415; 59200; 72170; 85014; 85018; 85027; 86592; 86850; 86900; 86901; 88307; G0378; J0595; J2210; J2590; J3010; J7120; Q0177